=== PATIENT | male | born 1955 | race Caucasian/White ===

== ENCOUNTER 2018-12-28 19:50 | Emergency (ER) | payer OTHER, MEDICARE ==
[~2018-12-28] VITALS: Ht 170.2 cm; Wt 141.5 kg
[2018-12-28 20:55] LABS: Alanine Aminotransfer (ALT/SGP 25 U/L (12-78); Albumin, Blood 4.5 g/dL (3.4-5.0); Albumin/Globulin Ratio 1.1 (0.8-1.8); Alk Phos 82 U/L (50-136); Anion Gap 9 mmol/L (6-16); Aspartate Aminotrans (AST/SGOT 32 U/L (12-37); Bilirubin, Total 0.8 mg/dL (0.1-1.0); Blood Urea Nitrogen 25 mg/dL (8-24); CO2, Blood 26 mmol/L (21-32); Chloride, Blood 105 mmol/L (98-108); Creatinine, Blood 1.19 mg/dL (0.60-1.20); Globulin, Blood 4.2 g/dL (2.2-4.0); Glomerular Filtration Rate >60 (60-); Glucose, Blood 128 mg/dL (70-99); Sodium, Blood 140 mmol/L (136-145); Total Protein, Blood 8.7 g/dL (6.4-8.2)
[2018-12-28] MEDS ORDERED: GABA300T24 (21:24)
[2018-12-28] MEDS ORDERED: LISI20 PO (21:25)
[2018-12-28] MEDS ORDERED: TIZANIDINE HCL4 MG PO (21:26)
[2018-12-28] MEDS ORDERED: AMLO10 PO (21:26)
[2018-12-28] MEDS ORDERED: POTCHL20ER PO (21:27)
[2018-12-28] MEDS ORDERED: TRAM50 PO (21:27)
[2018-12-28] MEDS ORDERED: METO50 PO (21:28)
[2018-12-28] MEDS ORDERED: BUME1 PO (21:28)
[2018-12-28] MEDS ORDERED: ASPI81CH PO (21:28)
[2018-12-28] MEDS ORDERED: DULO60 PO (21:29)
[2018-12-28] MEDS ORDERED: Ranitidine HCl150 M1 PO (21:29)
[2018-12-28] MEDS ORDERED: ATOR20 PO (21:30)
[2018-12-28 21:32] LABS: BASOPHILS ABSOLUTE AUTO 0.03 K/mm3 (0.00-0.23); BASOPHILS PERCENT AUTO 0 % (0-2); EOSINOPHILS ABSOLUTE AUTO 0.17 K/mm3 (0.00-0.68); EOSINOPHILS PERCENT AUTO 2 % (0-6); Hematocrit 40.9 % (37.0-53.0); Hemoglobin 13.7 g/dL (13.5-17.5); IMMATURE GRAN ABSOLUTE AUTO 0.03 K/mm3 (0.00-0.10); IMMATURE GRAN PERCENT AUTO 0 % (0-1); LYMPHOCYTES ABSOLUTE AUTO 0.95 K/mm3 (0.84-5.20); LYMPHOCYTES PERCENT AUTO 9 % (21-46); MONOCYTES ABSOLUTE AUTO 0.74 K/mm3 (0.16-1.47); MONOCYTES PERCENT AUTO 7 % (4-13); Mean Corpuscular HGB 30.7 pg (26.0-34.0); Mean Corpuscular HGB Conc 33.5 g/dL (31.5-36.5); Mean Corpuscular Volume 92 fL (80-100); Mean Platelet Volume 9.7 fL (9.1-12.4); NEUTROPHILS ABSOLUTE AUTO 8.33 K/mm3 (1.96-9.15); NEUTROPHILS PERCENT AUTO 81 % (41-73); Platelet Count 190 K/mm3 (150-400); RDW Coefficient Variation 12.8 % (11.7-14.2); RDW Standard Deviation 42.7 fL (35.1-46.3); Red Blood Cell Count 4.46 M/mm3 (4.30-5.90); White Blood Cell Count 10.25 K/mm3 (4.00-11.30)
[2018-12-28 22:34] LABS: Source, Urine Clean Catch
[2018-12-28 22:36] LABS: Bilirubin, Urine Neg (Neg); Blood, Urine 3+ (Neg); Glucose Qualitative, Urine Neg (Neg); Ketones, Urine Neg (Neg); Leukocyte Esterase, Urine Neg (Neg); Nitrite, Urine Neg (Neg); Protein, Urine 1+ (Neg); Urobilinogen, Urine NORM (Normal)
[2018-12-28 22:45] LABS: Amorphous Light (0-Heavy); Appearance, Urine Hazy (Clear); Bacteria Rare /hpf; Color, Urine Yellow (P-Yellow); Mucus Light (0-Heavy); Red Blood Cells, Urine 25-50 /hpf (0-2); Squamous Epithelial Cells Few /hpf (Few); White Blood Cells, Urine Not Seen /hpf (0-5)
== END 2018-12-29 00:15 | disposition home or self-care (01) ==
LOC: ER 19:50
PROVIDERS: Physician Assistant
DX: N13.2 Hydronephrosis with renal and ureteral calculous obstruction (principal); Z88.0 Allergy status to penicillin; Z88.5 Allergy status to narcotic agent; Z88.8 Allergy status to other drugs, medicaments and biological substances; Z79.899 Other long term (current) drug therapy; I10 Essential (primary) hypertension; E78.5 Hyperlipidemia, unspecified
CPT/HCPCS: 74176; 80053; 81001; 83690; 85025; 96374; 96375; 99284-25; A9270; A9270-GY; J1170; J1885; J2405

== ENCOUNTER → 2022-08-10 | Outpatient (CLI) | payer MEDICARE, OTHER ==
[~2022-08-10] MED LIST: AMLO10 PO; ASPI81CH PO; ATOR20 PO; BUME1 PO; DULO60 PO; GABA300T24; LISI20 PO; METO50 PO; POTCHL20ER PO; Ranitidine HCl150 M1 PO; TIZANIDINE HCL4 MG PO; TRAM50 PO
== END ==
LOC: LAB SHORT 07:13 → PLD 07:13
DX: R21 Rash and other nonspecific skin eruption (principal)
CPT/HCPCS: 88312